=== PATIENT | male | born 1970 | race Caucasian/White ===

== ENCOUNTER 2018-11-13 20:41 | Observation (INO) ==
--- NOTE | 2018-11-13 21:22 | PROVIDER DOCUMENTATION ---
HPI-Head Injury - General Chief Complaint: Head Injury Stated Complaint: EXTREME ETOH Time Seen by Provider: 11/13/18 21:06 Source: EMS Unable to obtain history due to:: altered Allergies/Adverse Reactions: Patient Allergies Allergy/AdvReac Type Severity Reaction Status Date / Time No Known Allergies Allergy Verified 11/13/18 22:43 Home Medications: Home Medication List Medication Instructions Recorded Confirmed Last Taken Type NK [No Home Medications] 11/13/18 11/13/18 Unknown History - History of Present Illness-Head Injury Nature of Presenting Problem: White male of unknown age found down under camper with head laceration brought in by EMS. pt not oriented to place or time. Pt respods to questions, GCS 14. Head Injury Location: reports: frontal, other (face) Onset/Duration: reports: unsure Timing: reports: still present Method of Injury: reports: unknown Loss of Consciousness: unsure Locality of Occurance: Home Review of Systems - Adult - REVIEW OF SYSTEMS - ADULT ROS:: unobtainable per condition Constitutional: denies: fever Past History - Adult - PAST MEDICAL HISTORY-ADULT Review of Records: reports: Old Records Reviewed (no past medical visits. pt originally from [place]. unable to get a good hx or ROS due to pt state of intoxication) Physical Exam- Neurological - Physical Exam-Neuro General Appearance: thin, other (intoxicated) Head Injury: active bleeding, ecchymosis, lacerations, swelling Respiratory: lungs clear, normal breath sounds, no respiratory distress, no accessory muscle use Cardiovascular: regular rate, rhythm, no edema Abdominal Exam: normal bowel sounds, non tender, soft. 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 negative: facial droop, facial paresthesias, facial weakness Motor/Sensory: negative: no motor deficit, no sensory deficit Integumentary: ecchymosis, swelling - Glascow Coma Scale Best Eye Response: (4) open spontaneously Best Verbal Response: (4) confused conversation Best Motor Response: (6) obeys commands Progress - PLAN OF CARE/RESULTS Progress/Plan/Lab Results: Vital Signs - 8 hr 11/14/18 02:20 11/14/18 02:30 11/14/18 02:40 Pulse Rate 109 H 100 H 114 H Respiratory Rate 16 18 15 Blood Pressure O2 Sat by Pulse Oximetry 93 L 98 96 11/14/18 02:50 11/14/18 03:00 11/14/18 03:10 Pulse Rate 103 H 105 H 106 H Respiratory Rate 17 17 17 Blood Pressure O2 Sat by Pulse Oximetry 96 96 97 11/14/18 03:20 11/14/18 03:30 11/14/18 03:40 Pulse Rate 102 H 99 H 101 H Respiratory Rate 18 17 20 Blood Pressure O2 Sat by Pulse Oximetry 97 98 98 11/14/18 03:50 11/14/18 04:00 11/14/18 04:10 Pulse Rate 103 H 100 H 99 H Respiratory Rate 24 17 18 Blood Pressure O2 Sat by Pulse Oximetry 97 96 98 11/14/18 04:20 11/14/18 04:30 11/14/18 04:40 Pulse Rate 101 H 100 H 99 H Respiratory Rate 17 18 19 Blood Pressure O2 Sat by Pulse Oximetry 96 97 11/14/18 04:50 11/14/18 05:00 11/14/18 05:10 Pulse Rate 99 H 96 H 99 H Respiratory Rate 20 20 19 Blood Pressure O2 Sat by Pulse Oximetry 96 97 96 11/14/18 05:20 11/14/18 06:38 11/14/18 10:10 Pulse Rate 101 H 99 H Respiratory Rate 18 17 Blood Pressure 120/74 O2 Sat by Pulse Oximetry 96 98 97 Laboratory Results - last 24 hr 11/13/18 11/13/18 11/13/18 21:30 21:30 21:30 WBC 22.75 H RBC 4.70 Hgb 15.0 Hct 43.2 MCV 91.9 MCH 31.9 H MCHC 34.7 RDW Std Deviation 12.7 Plt Count 303 MPV 10.7 H Immature Gran % (Auto) 0.4 Neut % (Auto) 80.9 H Lymph % (Auto) 10.9 L [place]ady % (Auto) 5.5 Eos % (Auto) 2.2 Baso % (Auto) 0.1 Immature Gran # (Auto) 0.09 H Neut # (Auto) 18.41 H Lymph # (Auto) 2.48 Grady # (Auto) 1.25 H Eos # (Auto) 0.49 Baso # (Auto) 0.03 Specimen Type Sample Site pH pCO2 pO2 HCO3 Base Excess Oxyhemoglobin ABG O2 Sat (Calculated) ABG O2 Saturation ABG Carboxyhemoglobin ABG Methemoglobin Juan Test A-a O2 Difference Total Hemoglobin Lactate Blood Gas Modality FiO2 % Sodium 146 H Potassium 4.0 Chloride 104 Carbon Dioxide 27 Anion Gap 15 BUN 20 Creatinine 0.9 Estimated GFR/1.73 m2 > 60 BUN/Creatinine Ratio 22 Glucose 123 H POC Glucose Calculated Osmolality 295 Calcium 9.0 Total Bilirubin < 0.15 L AST 80 H ALT 53 H Alkaline Phosphatase 96 Creatine Kinase 241 H Creatine Kinase Index 2.5 CK-MB (CK-2) 6.05 H Total Protein 6.6 Albumin 4.3 Globulin 2.3 Albumin/Globulin Ratio 1.9 Plasma Lactate Urine Source Urine Color Urine Turbidity Urine pH Ur Specific [place] Urine Protein Ur Glucose (Stick) Ur Ketones (Stick) Urine Blood Urine Nitrite Urine Bilirubin Urobilinogen Dipstick Urine Leukocytes Urine WBC (Auto) Urine RBC (Auto) U Epithel Cells (Auto) Urine Bacteria (Auto) Urine Opiates Screen Ur Oxycodone Screen Ur Methadone, Qual Ur Barbiturates Screen Ur Phencyclidine Scrn Ur Amphetamines Screen U Benzodiazepines Scrn Urine Cocaine Screen U Cannabinoids Screen Plasma/Serum Ethyl Alc 375 H Acetone Level 11/13/18 11/13/18 11/13/18 21:58 21:58 22:21 WBC RBC Hgb Hct MCV MCH MCHC RDW Std Deviation Plt Count MPV Immature Gran % (Auto) Neut % (Auto) Lymph % (Auto) [place] % (Auto) Eos % (Auto) Baso % (Auto) Immature Gran # (Auto) Neut # (Auto) Lymph # (Auto) [place]ady # (Auto) Eos # (Auto) Baso # (Auto) Specimen Type Sample Site pH pCO2 pO2 HCO3 Base Excess Oxyhemoglobin ABG O2 Sat (Calculated) ABG O2 Saturation ABG Carboxyhemoglobin ABG Methemoglobin Juan Test A-a O2 Difference Total Hemoglobin Lactate Blood Gas Modality FiO2 % Sodium Potassium Chloride Carbon Dioxide Anion Gap BUN Creatinine Estimated GFR/1.73 m2 BUN/Creatinine Ratio Glucose POC Glucose 106 H Calculated Osmolality Calcium Total Bilirubin AST ALT Alkaline Phosphatase Creatine Kinase Creatine Kinase Index CK-MB (CK-2) Total Protein Albumin Globulin Albumin/Globulin Ratio Plasma Lactate Urine Source CLEAN CATCH Urine Color YELLOW Urine Turbidity HAZY Urine pH 6.0 Ur Specific [place] 1.025 Urine Protein 200 A Ur Glucose (Stick) NEGATIVE Ur Ketones (Stick) NEGATIVE Urine Blood LARGE A Urine Nitrite NEGATIVE Urine Bilirubin NEGATIVE Urobilinogen Dipstick NORMAL Urine Leukocytes NEGATIVE Urine WBC (Auto) <10 Urine RBC (Auto) <10 U Epithel Cells (Auto) <10 Urine Bacteria (Auto) NEGATIVE Urine Opiates Screen NONE DETECTED Ur Oxycodone Screen NONE DETECTED Ur Methadone, Qual NONE DETECTED Ur Barbiturates Screen NONE DETECTED Ur Phencyclidine Scrn NONE DETECTED Ur Amphetamines Screen NONE DETECTED U Benzodiazepines Scrn NONE DETECTED Urine Cocaine Screen NONE DETECTED U Cannabinoids Screen NONE DETECTED Plasma/Serum Ethyl Alc Acetone Level 11/14/18 11/14/18 11/14/18 05:33 05:33 05:35 WBC RBC Hgb Hct MCV MCH MCHC RDW Std Deviation Plt Count MPV Immature Gran % (Auto) Neut % (Auto) Lymph % (Auto) Grady % (Auto) Eos % (Auto) Baso % (Auto) Immature Gran # (Auto) Neut # (Auto) Lymph # (Auto) [place] # (Auto) Eos # (Auto) Baso # (Auto) Specimen Type Sample Site pH pCO2 pO2 HCO3 Base Excess Oxyhemoglobin ABG O2 Sat (Calculated) ABG O2 Saturation ABG Carboxyhemoglobin ABG Methemoglobin Juan Test A-a O2 Difference Total Hemoglobin Lactate Blood Gas Modality FiO2 % Sodium Potassium Chloride Carbon Dioxide Anion Gap BUN Creatinine Estimated GFR/1.73 m2 BUN/Creatinine Ratio Glucose POC Glucose Calculated Osmolality Calcium Total Bilirubin AST ALT Alkaline Phosphatase Creatine Kinase Creatine Kinase Index CK-MB (CK-2) Total Protein Albumin Globulin Albumin/Globulin Ratio Plasma Lactate 3.1 H Urine Source Urine Color Urine Turbidity Urine pH Ur Specific [place] Urine Protein Ur Glucose (Stick) Ur Ketones (Stick) Urine Blood Urine Nitrite Urine Bilirubin Urobilinogen Dipstick Urine Leukocytes Urine WBC (Auto) Urine RBC (Auto) U Epithel Cells (Auto) Urine Bacteria (Auto) Urine Opiates Screen Ur Oxycodone Screen Ur Methadone, Qual Ur Barbiturates Screen Ur Phencyclidine Scrn Ur Amphetamines Screen U Benzodiazepines Scrn Urine Cocaine Screen U Cannabinoids Screen Plasma/Serum Ethyl Alc 261 H Acetone Level NEGATIVE 11/14/18 11/14/18 11/14/18 08:49 08:49 08:49 WBC 14.37 H RBC 4.52 L Hgb 14.5 Hct 41.4 L MCV 91.6 MCH 32.1 H MCHC 35.0 RDW Std Deviation 12.8 Plt Count 246 MPV 10.6 H Immature Gran % (Auto) 0.2 Neut % (Auto) 80.7 H Lymph % (Auto) 10.6 L [place] % (Auto) 7.9 Eos % (Auto) 0.5 Baso % (Auto) 0.1 Immature Gran # (Auto) 0.03 Neut # (Auto) 11.60 H Lymph # (Auto) 1.53 [place]ady # (Auto) 1.13 H Eos # (Auto) 0.07 Baso # (Auto) 0.01 Specimen Type Sample Site pH pCO2 pO2 HCO3 Base Excess Oxyhemoglobin ABG O2 Sat (Calculated) ABG O2 Saturation ABG Carboxyhemoglobin ABG Methemoglobin Juan Test A-a O2 Difference Total Hemoglobin Lactate Blood Gas Modality FiO2 % Sodium Potassium Chloride Carbon Dioxide Anion Gap BUN Creatinine Estimated GFR/1.73 m2 BUN/Creatinine Ratio Glucose POC Glucose Calculated Osmolality Calcium Total Bilirubin AST ALT Alkaline Phosphatase Creatine Kinase Creatine Kinase Index CK-MB (CK-2) Total Protein Albumin Globulin Albumin/Globulin Ratio Plasma Lactate 4.0 H* Urine Source Urine Color Urine Turbidity Urine pH Ur Specific [place] Urine Protein Ur Glucose (Stick) Ur Ketones (Stick) Urine Blood Urine Nitrite Urine Bilirubin Urobilinogen Dipstick Urine Leukocytes Urine WBC (Auto) Urine RBC (Auto) U Epithel Cells (Auto) Urine Bacteria (Auto) Urine Opiates Screen Ur Oxycodone Screen Ur Methadone, Qual Ur Barbiturates Screen Ur Phencyclidine Scrn Ur Amphetamines Screen U Benzodiazepines Scrn Urine Cocaine Screen U Cannabinoids Screen Plasma/Serum Ethyl Alc 185 H Acetone Level 11/14/18 09:55 WBC RBC Hgb Hct MCV MCH MCHC RDW Std Deviation Plt Count MPV Immature Gran % (Auto) Neut % (Auto) Lymph % (Auto) [place] % (Auto) Eos % (Auto) Baso % (Auto) Immature Gran # (Auto) Neut # (Auto) Lymph # (Auto) [place]ady # (Auto) Eos # (Auto) Baso # (Auto) Specimen Type ARTERIAL Sample Site R BRACHIAL pH 7.38 pCO2 39 pO2 79 HCO3 23.5 Base Excess -1.8 Oxyhemoglobin 94.9 L ABG O2 Sat (Calculated) 17.8 ABG O2 Saturation 97.8 ABG Carboxyhemoglobin 1.70 ABG Methemoglobin 1.4 Juan Test NO A-a O2 Difference 22.0 Total Hemoglobin 13.3 Lactate 3.20 H Blood Gas Modality ROOM AIR FiO2 % 21.0 Sodium Potassium Chloride Carbon Dioxide Anion Gap BUN Creatinine Estimated GFR/1.73 m2 BUN/Creatinine Ratio Glucose POC Glucose Calculated Osmolality Calcium Total Bilirubin AST ALT Alkaline Phosphatase Creatine Kinase Creatine Kinase Index CK-MB (CK-2) Total Protein Albumin Globulin Albumin/Globulin Ratio Plasma Lactate Urine Source Urine Color Urine Turbidity Urine pH Ur Specific [place] Urine Protein Ur Glucose (Stick) Ur Ketones (Stick) Urine Blood Urine Nitrite Urine Bilirubin Urobilinogen Dipstick Urine Leukocytes Urine WBC (Auto) Urine RBC (Auto) U Epithel Cells (Auto) Urine Bacteria (Auto) Urine Opiates Screen Ur Oxycodone Screen Ur Methadone, Qual Ur Barbiturates Screen Ur Phencyclidine Scrn Ur Amphetamines Screen U Benzodiazepines Scrn Urine Cocaine Screen U Cannabinoids Screen Plasma/Serum Ethyl Alc Acetone Level Orders Category Date Time Status Apply C-Collar DIRECTED Care 11/13/18 23:10 Active Cardiac Monitoring DIRECTED Care 11/13/18 23:34 Active Finger Stick Blood Sugar (ED) DIRECTED Care 11/13/18 21:08 Completed Nursing- Obtain EKG ONCE Care 11/13/18 21:07 Active Saline Loc NOW Care 11/13/18 21:[address] HEAD/C-SPINE W/O CONTRAST [CT] Stat Exams 11/13/18 21:[address] MAXILLOFACIAL(SINUS) W/O CO [CT] Stat Exams 11/13/18 21:[address] THORAX/ABD/PELVIS W/CON [CT] Stat Exams 11/14/18 06:16 Completed cxr [CHEST-1 VIEW] [RAD] Stat Exams 11/14/18 02:21 Completed ABG [RESP] Routine Lab 11/14/18 09:55 Completed ACETONE SERUM [CHEM] Stat Lab 11/14/18 05:35 Completed ALCOHOL BLOOD Stat Lab 11/13/18 21:30 Completed ALCOHOL BLOOD Stat Lab 11/14/18 05:33 Completed ALCOHOL BLOOD Stat Lab 11/14/18 08:49 Completed CBC WITH DIFF [HEME] Stat Lab 11/14/18 08:49 Completed CBC WITH ELECTRONIC DIFF [HEME] Stat Lab 11/13/18 21:30 Completed CK PROFILE [SP CHEM] Stat Lab 11/13/18 21:30 Completed COMPREHENSIVE METABOLIC PANEL [CHEM] Stat Lab 11/13/18 21:30 Completed LACTATE, PLASMA [CHEM] Stat Lab 11/14/18 05:33 Completed LACTATE, PLASMA [CHEM] Stat Lab 11/14/18 08:49 Completed UA [URINALYSIS W/POSS RFLX CULT] [URINALYSIS] Stat Lab 11/13/18 21:58 Completed URINE DRUG SCREEN Stat Lab 11/13/18 21:58 Completed 0.9% Sodium Chloride Inj [Ns] 1,000 ml Med 11/14/18 06:07 Discontinued 0.9% Sodium Chloride Inj [Ns] 1,000 ml IV 999 mls/hr 0.9% Sodium Chloride Inj [Ns] 2,000 ml Med 11/14/18 06:17 Discontinued .ROUTE As directed Bacitracin/Polymixin Oint [Polysporin Ointment] Med 11/14/18 02:47 Discontinued 1 gm TOP NOW ONE Lidocaine Pf 2%/Epi [id number] [Xylocaine 2%/Epi 1:200, Med 11/14/18 01:30 Discontinued 000] 10 ml INJ NOW ONE Mvi [M.v.i.-12] 10 ml Med 11/14/18 09:37 Active Folic Acid 1 mg Magnesium Sulfate 1 gm Thiamine 100 mg 0.9% Sodium Chloride Inj [Ns] 1,000 ml IV NOW EKG [EKG] Stat Ther 11/13/18 22:27 Draft Leukocytosis and tachycardia noted. Lactic acid and repeat etoh also noted. Unlikely for this to be due to sepsis. However, will repeat labs after fluid bolus is completed and reevaluate the patient. CT chest.abd/pelvis ordered. Result Diagrams: 11/14/18 08:49 11/13/18 21:30 - REASSESSMENT Reassessment #1 Time Reassessed: 10:45 Status: unchanged (pt resting. reviewed CTs. unable to perform extra occular motion eye exam at this time due to pt state of intoxication. Tried to call radiology for clarification of report of fractures on osteocytes- whether acute or chronic, however his shift had ended. Will apply C-collar) Reassessment #2 Time Reassessed: 10:18 Status: other (STABLE WHILE IN ER. REPEAT CBC - LEUKOCYTOSIS IMPROVED. LACTATE HAS INCREASED. NO SIGN OF INFECTIOUS PROCESS. DISCUSSED WITH HOSPITALIST WILL ADMIT) - EKG 1 Time of EKG reading by physician:: 22:30 EKG Read and Signed by:: Vitaly Sal EKG Interpretation (*Must complete 3 of following elements*): Abnormal (sinus tachycardia, otherwise normal) Rate: 106 [place]: normal QRS: normal [place] Interval: normal ST Wave: normal - CT/MRI 1 CT Study: Head (EXAM: CT HEAD/C-SPINE W/O CONTRAST - 11/13/2018 HISTORY: injury TECHNIQUE: CT head/cervical spine without contrast COMPARISON: None. FINDINGS: CT head: There is subcutaneous soft tissue swelling at the left anterior lateral scalp. There is no evidence of intracranial hemorrhage, mass effect, midline shift, or hydrocephalus. There is no evidence of skull fracture. CT cervical spine: There are postsurgical changes of anterior fusion at C6-7. There are large anterior lateral osteophytes on the right at C5-6. There are l ucencies within these osteophytes which may be long-standing or may relate to fracture of the osteophytes. There is no other cervical spine fracture identified. There is no subluxation seen. IMPRESSION: CT head: Subcutaneous soft tissue swelling at anterior lateral left scalp. No evidence of intracranial injury. CT cervical spine: Postsurgical changes of anterior fusion at C6-7. Large anterior lateral osteophytes at C5-6. Questionable fracture of these osteophytes versus long-standing change. No other evidence of cervical spine fracture or subluxation. This exam was performed using automated exposure control, adjustment of mA or kV according to patient size, and/or use of iterative reconstruction technique. Electronically signed by Darrel Medina 11/13/2018 10:01 PM), Neck 2 CT Study: other (facial bones EXAM: CT MAXILLOFACIAL(SINUS) W/O CO - 11/13/2018 HISTORY: INJURY TECHNIQUE: CT facial bones without contrast COMPARISON: None. FINDINGS: There is periorbital subcutaneous soft tissue swelling on the right. There is no retrobulbar orbital hematoma identified. The globes of the orbits appear grossly intact. There is subcutaneous air at the lower right face. There is fracture along the lateral wall the right maxillary sinus. There are medially displaced/angled comminuted fragments at the inferior aspect of the fracture. There is blood in the right maxillary sinus. There is fracture of the nearby posterior lateral most aspect of the floor of the right orbit. There is a fracture of the right zygomatic arch with minimal displacement. There are fracture deformities of the nasal bones, is not clear if these are acute or chronic. There is chronic appearing deviation of the nasal septum to the right. There is chronic appearing deformity of the right temporomandibular joint. IMPRESSION: Periorbital subcutaneous soft tissue swelling on the right. Subcutaneous air at right lower face. No evidence of retrobulbar orbital reyna karl. Fracture along the lateral wall of the right maxillary sinus, with medially displaced/angled comminuted fragments at its inferior portion. Fracture of the nearby posterior lateral most right orbital floor. Minimally displaced fracture of right zygomatic arch. Acute versus chronic fracture deformities of nasal bones. Electronically signed by Darrel Medina 11/13/2018 10:18 PM) - CHANGE OF SHIFT REPORT (ED Provider) 1 Report Given and Care Transferred to:: [id number] Sal Time of Transfer: 02:25 Items Pending: XRAY Results, Other (reevaulation) 2 Report Given and Care Transferred to:: Dr. Benjamin with disposition pending reevaluation, CT and repeat labs. Time of Transfer: 06:54 Procedures - LACERATION/WOUND REPAIR/FB Right Upper Anterior Eye Wound Length: 2.5 cm Wound's Depth, Shape: superficial, linear Wound Explored/Foreign Body: contaminated moderately, no foreign body found Irrigated with Saline?: Yes Prepped with: Hibiclens Anesthetic: 2%, Lidocaine w/ Epinephrine Volume of Anesthetic (ml's): 3 Wound Debrided: minimal Wound Repaired with: Sutures Suture Size/Type: 4.0, Non-Absorbable, Nylon Number of Sutures: 8 Layer Closure?: No Sterile Dressing Applied?: Yes Procedure Comment: pt tolerated procedure well Departure - Departure Date of Disposition Decision: 11/14/18 Time of Disposition Decision: 10:17 DIAGNOSIS: Leukocytosis, Alcohol intoxication, Lactic acid acidosis, Rib fractures, Head injury Disposition: ADMITTED INPATIENT 09 Certified Medical Emergency: Emergent Condition: Fair Referrals and Follow-Ups: UNKNOWN, [Primary Care Provider] - - Critical Care Note This patient required my direct & personal management of CC.: Yes Total Time (mins): 45 Critical Care Statement: This patient required my direct personal management to treat or rule out processes, the absence of which, could potentiallly result in sudden, clinically significant life or limb threatening deterioration. Attestation - Physician/ ALISHA Attestation Patient care was provided by Advanced Practice Provider:: No The physician spent face to face time with patient:: Yes Advanced Practice Provider documentation review:: Supervising physician onsite and consulted in the evaluation and care of this patient. The physician did have a face to face encounter with the patient.
[2018-11-13 21:57] LABS: BASO# 0.03 X1000 (0.0-0.2); BASO% 0.1 % (0.0-0.8); EOS# 0.49 X1000 (0.0-0.7); EOS% 2.2 % (0.0-10.0); HEMATOCRIT 43.2 % (42.0-52.0); IMM GRAN# 0.09 X1000 (0.0-0.04); IMM GRAN% 0.4 % (0.0-0.5); LYMPH# 2.48 X1000 (1.2-3.4); LYMPH% 10.9 % (20.5-51.1); MCH 31.9 PG (27-31); MCHC 34.7 g/dL (33-37); MCV 91.9 FL (81-99); MONO# 1.25 X1000 (0.11-0.59); MONO% 5.5 % (1.7-9.3); MPV 10.7 FL (7.4-10.4); NEUT# 18.41 X1000 (1.4-6.5); NEUT% 80.9 % (42.2-75.2); PLT 303 X1000 (130-400); RDW 12.7 % (11.5-14.5); WBC 22.75 X1000 (4.8-10.8)
--- NOTE | 2018-11-13 22:03 | Diag Imaging Result Doc PS360 ---
EXAM: CT HEAD/C-SPINE W/O CONTRAST - 11/13/2018 HISTORY: injury TECHNIQUE: CT head/cervical spine without contrast COMPARISON: None. FINDINGS: CT head: There is subcutaneous soft tissue swelling at the left anterior lateral scalp. There is no evidence of intracranial hemorrhage, mass effect, midline shift, or hydrocephalus. There is no evidence of skull fracture. CT cervical spine: There are postsurgical changes of anterior fusion at C6-7. There are large anterior lateral osteophytes on the right at C5-6. There are lucencies within these osteophytes which may be long-standing or may relate to fracture of the osteophytes. There is no other cervical spine fracture identified. There is no subluxation seen. IMPRESSION: CT head: Subcutaneous soft tissue swelling at anterior lateral left scalp. No evidence of intracranial injury. CT cervical spine: Postsurgical changes of anterior fusion at C6-7. Large anterior lateral osteophytes at C5-6. Questionable fracture of these osteophytes versus long-standing change. No other evidence of cervical spine fracture or subluxation. This exam was performed using automated exposure control, adjustment of mA or kV according to patient size, and/or use of iterative reconstruction technique. Electronically signed by Darrel Medina 11/13/2018 10:01 PM
[2018-11-13 22:17] LABS: UR AMPHETAMINES QUAL NONE DETECTED (NONE DETECT); UR BARBITUATES QUAL NONE DETECTED (NONE DETECT); UR BENZODIAZEPIN QUAL NONE DETECTED (NONE DETECT); UR CANNABINOIDS QUAL NONE DETECTED (NONE DETECT); UR COCAINE QUAL NONE DETECTED (NONE DETECT); UR METHADONE QUAL NONE DETECTED (NONE DETECT); UR OPIATES QUAL NONE DETECTED (NONE DETECT); UR OXYCODONE QUAL NONE DETECTED (NONE DETECT); UR PCP QUAL NONE DETECTED (NONE DETECT)
--- NOTE | 2018-11-13 22:20 | Diag Imaging Result Doc PS360 ---
EXAM: CT MAXILLOFACIAL(SINUS) W/O CO - 11/13/2018 HISTORY: INJURY TECHNIQUE: CT facial bones without contrast COMPARISON: None. FINDINGS: There is periorbital subcutaneous soft tissue swelling on the right. There is no retrobulbar orbital hematoma identified. The globes of the orbits appear grossly intact. There is subcutaneous air at the lower right face. There is fracture along the lateral wall the right maxillary sinus. There are medially displaced/angled comminuted fragments at the inferior aspect of the fracture. There is blood in the right maxillary sinus. There is fracture of the nearby posterior lateral most aspect of the floor of the right orbit. There is a fracture of the right zygomatic arch with minimal displacement. There are fracture deformities of the nasal bones, is not clear if these are acute or chronic. There is chronic appearing deviation of the nasal septum to the right. There is chronic appearing deformity of the right temporomandibular joint. IMPRESSION: Periorbital subcutaneous soft tissue swelling on the right. Subcutaneous air at right lower face. No evidence of retrobulbar orbital hematoma. Fracture along the lateral wall of the right maxillary sinus, with medially displaced/angled comminuted fragments at its inferior portion. Fracture of the nearby posterior lateral most right orbital floor. Minimally displaced fracture of right zygomatic arch. Acute versus chronic fracture deformities of nasal bones. Electronically signed by Darrel Medina 11/13/2018 10:18 PM
[2018-11-13 22:24] LABS: URINE SOURCE CLEAN CATCH
[2018-11-13 22:31] LABS: AGAP 15; ALB/GLOB RATIO 1.9; ALBUMIN 4.3 g/dL (3.5-5.0); ALKALINE PHOSPHATASE 96 U/L (32-122); BUN 20 mg/dL (8-22); CHLORIDE 104 mmol/L (98-107); CK PROFILE 241 U/L (24-204); COSMO 295; CREATININE 0.9 mg/dL (0.7-1.2); ESTIMATED GFR > 60; GLUCOSE 123 mg/dL (70-104); GOT 80 U/L (10-34); GPT 53 U/L (10-44); SODIUM 146 mmol/L (136-145); TCO2 27 mmol/L (25-35); TOTAL BILIRUBIN < 0.15 mg/dL (0.20-1.00); TOTAL PROTEIN 6.6 g/dL (6.3-8.3)
[2018-11-13 22:46] LABS: BILIRUBIN URINE NEGATIVE (NEGATIVE); BLOOD URINE LARGE (NEGATIVE); COLOR YELLOW; GLUCOSE URINE NEGATIVE (NEGATIVE); KETONE URINE NEGATIVE (NEGATIVE); LEUKOCYTES URINE NEGATIVE (NEGATIVE); NITRITE URINE NEGATIVE (NEGATIVE); PROTEIN URINE 200 mg/dL (NEGATIVE); SP GRAVITY URINE 1.025; TURBIDITY URINE HAZY (CLEAR); UROBILINOGEN URINE NORMAL (NORMAL)
[2018-11-13 22:47] LABS: UR EPITHELIAL CELLS <10 /HPF (<10); URINE BACTERIA NEGATIVE /HPF; URINE RBC <10 /HPF (<10); URINE WBC <10 /HPF (<10)
[2018-11-13 22:58] LABS: CK INDEX 2.5 (0.0-2.5); CK-MB 6.05 ng/mL (0.0-5.0)
[2018-11-14] MEDS ORDERED: XYLOCAINE-MPF 2% INJ ONE (01:13)
[2018-11-14] MEDS ORDERED: XYLOCAINE 2%/EPI 1:200,000 INJ ONE (01:30)
[2018-11-14] MEDS ORDERED: POLYSPORIN OINTMENT TOP ONE (02:47)
[2018-11-14] MEDS ORDERED: NS 1,000 ML, NS 1,000 ML IV ONE ×2 (06:07)
[2018-11-14] MEDS ORDERED: NS 2,000 ML ONE (06:17)
--- NOTE | 2018-11-14 07:05 | Diag Imaging Result Doc PS360 ---
EXAM: CHEST-1 VIEW 11/14/2018 HISTORY: chest wall pain TECHNIQUE: AP portable at 0229 COMMENT: There are multiple healing rib fractures on the right. There is no evidence of acute cardiac or pulmonary disease. There are no previous studies. IMPRESSION: No acute disease. Electronically signed by Emmanuel Lewis 11/14/2018 7:03 AM
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
--- NOTE | 2018-11-14 08:59 | EKG Report ---
Test Performed on : 11/13/2018 10:27:06 PM Test Reason : ED. NO EKG ORDER FOR MUSE Blood Pressure : / mmHG Vent. Rate : 106 BPM Atrial Rate : 106 BPM P-R Int : 146 ms QRS Dur : 084 ms QT Int : 350 ms P-R-T Axes : 068 070 064 degrees QTc Int : 464 ms Sinus tachycardia. Otherwise normal ECG No previous ECGs available Unconfirmed Result
[2018-11-14 09:18] LABS: BASO# 0.01 X1000 (0.0-0.2); BASO% 0.1 % (0.0-0.8); EOS# 0.07 X1000 (0.0-0.7); EOS% 0.5 % (0.0-10.0); HEMATOCRIT 41.4 % (42.0-52.0); HEMOGLOBIN 14.5 g/dL (14.0-18.0); IMM GRAN# 0.03 X1000 (0.0-0.04); IMM GRAN% 0.2 % (0.0-0.5); LYMPH# 1.53 X1000 (1.2-3.4); LYMPH% 10.6 % (20.5-51.1); MCH 32.1 PG (27-31); MCV 91.6 FL (81-99); MONO# 1.13 X1000 (0.11-0.59); MONO% 7.9 % (1.7-9.3); MPV 10.6 FL (7.4-10.4); NEUT% 80.7 % (42.2-75.2); PLT 246 X1000 (130-400); RBC 4.52 XMIL (4.7-6.1); RDW 12.8 % (11.5-14.5); WBC 14.37 X1000 (4.8-10.8)
[2018-11-14] MEDS ORDERED: M.V.I.-12 10 ML, FOLIC ACID 1 MG, MAGNESIUM SULFATE 1 GM, THIAMINE 100 MG in NS 1,000 ML IV ONE (09:37)
[2018-11-14 10:07] LABS: ALLEN TEST NO; BE -1.8 mmoll (-3.0-3.0); BLOOD TYPE ARTERIAL; HCO3-(ACT) 23.5 mmoll (20.0-26.0); METHB 1.4 % (0.0-1.5); O2(CT) 17.8 mL/dL (15.0-23.0); O2HB 94.9 % (95.0-99.0); PCO2(98.6) 39 mmHg (35-45); PO2(98.6) 79 mmHg (60-100); SAMPLE BLOOD; SAO2 97.8 % (95.0-100.0); THB 13.3 g/dL (11.5-17.4); pH(98.6) 7.38 (7.35-7.45)
[2018-11-14 10:08] LABS: MODALITY ROOM AIR
[2018-11-14] MEDS ORDERED: KEFZOL 2 GM/D5W 2 GM/50 ML IVPB IV ONE (10:25)
[2018-11-14] MEDS ORDERED: BOOSTRIX VACCINE IM ONE (10:25)
[2018-11-14] MEDS ORDERED: SODIUM CHLORIDE 0.9% INJ SCH (12:25)
[2018-11-14] MEDS ORDERED: ATIVAN IV PRN (12:25)
[2018-11-14] MEDS ORDERED: ZOFRAN IV PRN (12:25)
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
[2018-11-14] MEDS: MORPHINE IV PRN ×2 (13:05→20:06)
[2018-11-14] MEDS: NS 1,000 ML IV SCH ×2 (13:05→22:54)
[2018-11-14] MEDS: PROTONIX IV SCH (13:06)
[2018-11-14] MEDS: TYLENOL PO PRN (16:17)
[2018-11-14] MEDS ORDERED: NS 1,000 ML IV ONE (18:37)
[2018-11-14] MEDS: KEFZOL 1 GM/D5W 1 GM/50 ML IVPB IV SCH (19:55)
[2018-11-15] MEDS: MORPHINE IV PRN ×3 (01:09→10:28)
[2018-11-15] MEDS: KEFZOL 1 GM/D5W 1 GM/50 ML IVPB IV SCH ×4 (03:28→18:02)
[2018-11-15 05:49] LABS: BASO# 0.02 X1000 (0.0-0.2); BASO% 0.2 % (0.0-0.8); EOS# 1.15 X1000 (0.0-0.7); EOS% 10.2 % (0.0-10.0); HEMOGLOBIN 12.3 g/dL (14.0-18.0); IMM GRAN# 0.02 X1000 (0.0-0.04); IMM GRAN% 0.2 % (0.0-0.5); LYMPH# 1.28 X1000 (1.2-3.4); LYMPH% 11.3 % (20.5-51.1); MCH 31.5 PG (27-31); MCHC 34.2 g/dL (33-37); MCV 92.1 FL (81-99); MONO# 0.88 X1000 (0.11-0.59); MONO% 7.8 % (1.7-9.3); MPV 10.9 FL (7.4-10.4); NEUT# 7.97 X1000 (1.4-6.5); NEUT% 70.3 % (42.2-75.2); PLT 206 X1000 (130-400); RBC 3.91 XMIL (4.7-6.1); RDW 12.4 % (11.5-14.5); WBC 11.32 X1000 (4.8-10.8)
[2018-11-15 06:05] LABS: AGAP 9; CHLORIDE 106 mmol/L (98-107); GLUCOSE 119 mg/dL (70-104); SODIUM 140 mmol/L (136-145); TCO2 25 mmol/L (25-35)
[2018-11-15 06:06] LABS: ALB/GLOB RATIO 1.3; ALKALINE PHOSPHATASE 91 U/L (32-122); BUN 13 mg/dL (8-22); CALCIUM 8.1 mg/dL (8.8-10.2); COSMO 281; CREATININE 0.7 mg/dL (0.7-1.2); ESTIMATED GFR > 60; GOT 33 U/L (10-34); GPT 29 U/L (10-44); TOTAL BILIRUBIN 0.49 mg/dL (0.20-1.00); TOTAL PROTEIN 5.3 g/dL (6.3-8.3)
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
[2018-11-15] MEDS: NS 1,000 ML IV SCH (08:10)
[2018-11-15] MEDS ORDERED: M.V.I.-12 10 ML, FOLIC ACID 1 MG, MAGNESIUM SULFATE 1 GM, THIAMINE 100 MG in NS 1,000 ML IV SCH ×2 (10:00→16:40)
[2018-11-15] MEDS: PROTONIX IV SCH (13:29)
[2018-11-15] MEDS: NORCO-7.5 PO PRN ×2 (17:08→23:19)
--- NOTE | 2018-11-15 18:02 | PROGRESS NOTE ---
DATE: 11/15/2018 SUBJECTIVE: Patient has no major complaints. OBJECTIVE: Vital Signs: Blood pressure is 124/73, heart rate 83, respiratory rate 15, temperature 98.6, 100% on room air. General: He looks well. I think we need to start getting him up and around. I am not sure if there is going to be a surgical case here, but we will see. Cardiovascular: Regular rate and rhythm. Pulmonary: Bilateral breath sounds. He does have swelling of his face, but it is improved even just from yesterday. His laceration looks clean, dry, and intact. His periorbital ecchymoses are better. His conjunctival hemorrhage is better. There is less swelling. LABORATORY DATA: White count is down to 11, hemoglobin and hematocrit 12 and 36, platelets 206. Lactate is finally down to 2. PROBLEM LIST: 1. Acute alcohol intoxication, possibly with pure grain alcohol. 2. Lactic acidosis, but that is improved. 3. Multiple small nondisplaced fractures of his zygomatic arch, orbit and maxillary sinus. Waiting on ENT to evaluate for other treatment options. DISPOSITION: I think pending his clinical status, anticipate discharge soon. cc: Kevin Ceron MD
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
[2018-11-16] MEDS: TYLENOL PO PRN (03:47)
[2018-11-16] MEDS: KEFZOL 1 GM/D5W 1 GM/50 ML IVPB IV SCH ×2 (03:47→10:25)
[2018-11-16] MEDS: NORCO-7.5 PO PRN (06:25)
[2018-11-16] MEDS ORDERED: PRILOSEC PO SCH (07:00)
[2018-11-16 08:32] VITALS: BP 139/81
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
== END 2018-11-16 13:05 | disposition home or self-care (01) | DRG 897 ==
LOC: EDBD → ED 20:41 → 2N 20:42 → INTOOBSV 20:42 → 2N 11-14 11:56
PROVIDERS: ATTEND Internal Medicine